=== PATIENT | female | born 1965 ===

== ENCOUNTER 2023-01-08 07:48 | Outpatient (REF) | payer OTHER, SELFPAY ==
[2023-01-08 10:57] LABS: MANUAL DIFF FLAG NO
[2023-01-08 11:22] LABS: Basophils Percent Auto 0.5 % (0-2); Eosinophils Absolute Auto 0.3 X10*3/uL (0.0-0.4); Eosinophils Percent Auto 4.5 % (0-4); Hematocrit 40.1 % (37.0-47.0); Hemoglobin 12.8 g/dl (12.0-16.0); Imm Gran Abs Auto 0.01 X10*3/uL (0.00-0.03); Imm Gran Pct Auto 0.2 % (0.0-0.4); Lymphocytes Absolute Auto 1.7 X10*3/uL (1.2-4.9); Lymphocytes Percent Auto 27.7 % (20-40); Mean Corpuscular HGB Conc 31.9 g/dl (31.0-35.0); Mean Corpuscular Hemoglobin 26.3 pg (27.0-33.0); Mean Corpuscular Volume 82.3 fL (80.0-98.0); Monocytes Absolute Auto 0.6 X10*3/uL (0.1-1.2); Monocytes Percent Auto 8.8 % (2-11); Neutrophils Absolute Auto 3.7 x10*3/uL (2.0-8.3); Neutrophils Percent Auto 58.3 % (45-73); Platelet Count 287 X10*3/uL (160-400); Red Blood Count 4.87 X10*6/uL (4.20-5.50); Red Cell Distribution Width 14.4 % (11.0-16.0); White Blood Count 6.3 X10*3/uL (4.8-10.8)
[2023-01-08 11:27] LABS: Alanine Aminotransferase 23 U/L (0-31); Albumin Level 4.1 g/dL (3.5-5.0); Alkaline Phosphatase 69 U/L (39-117); Anion Gap 12 (12-20); Aspartate Amino Transferase 20 U/L (5-31); Bilirubin Total 0.4 mg/dL (0.0-1.0); Blood Urea Nitrogen 11 mg/dL (9-16); Calcium 10.2 mg/dL (8.4-10.2); Carbon Dioxide 26 mmol/L (22-29); Chloride 105 mmol/L (96-108); Cholesterol 198 mg/dL; Estimated Glomerular Filt Rate > 60; Glucose Fasting 118 mg/dL (60-99); HDL Cholesterol 50 mg/dL; LDL Cholesterol Calculated 115 mg/dl; Potassium 4.4 mmol/L (3.3-5.1); Sodium 139 mmol/L (135-145); Total Protein 7.5 g/dL (6.5-8.0); Triglycerides 166 mg/dL
[2023-01-08 11:44] LABS: Thyroid Stimulating Hormone 2.77 uIU/mL (0.32-4.0)
== END 2023-01-08 07:49 | disposition home or self-care (01) ==
LOC: HO.10HDL 07:48
PROVIDERS: Visit Provider Internal Medicine
DX: Z00.00 Encounter for general adult medical examination without abnormal findings (principal); D86.9 Sarcoidosis, unspecified; F32.9 Major depressive disorder, single episode, unspecified; I10 Essential (primary) hypertension; Z87.42 Personal history of other diseases of the female genital tract
CPT/HCPCS: 36415; 80053; 80061; 84443; 85025

== ENCOUNTER 2023-02-16 10:08 | Outpatient (AMB) | payer OTHER, SELFPAY ==
--- NOTE | 2023-02-16 10:36 | A.OFFVIS_ITS ---
Intake Vital Signs 02/16/23 10:38 Height 5 ft 4 in Weight 153 lb BMI 26.3 BP 110/82 Blood Pressure Location Lt brachial Position Standing Pulse 88 Pulse Source Pulse Oximeter Pulse Oximetry (%) 98 Oxygen Delivery Method Room Air Intake Visit Reasons: Sarcoidosis Intake Note: pt is here as a new patient for Sarcoid, she does have symptoms at times of short of breath, gentle exercises Pt did have a biopsy about 10 years ago for her sarcoid DX. but hasn't had any follow up on this in about 6 years. 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 The patient is a 57 year woman with a known diagnosis of sarcoidosis made about 10 years ago. Apparently the patient had symptoms of shortness of breath and had a preop evaluation which she had a chest x-ray that time. She was found to have an abnormal chest x-ray and referred to Pulmonary. There she had additional testing and underwent bronchoscopy likely with EBUS and was diagnosed with sarcoidosis per report. She was not treated because her symptoms were minimal a and her findings were mild. She was monitor closely with PFTs at that time. She has not had breathing studies in a while. She also had her eyes checked. Denies any rashes. In the meantime she did have significant allergies with significant nasal congestion. She lived in different parts of the [facility]. Back in [place] she had allergy testing and also had ENT see operable opt perform sinus surgery. She did not have any nasal polyps documented. The patient was also found to have significant allergies. Now she is having significant shortness of breath. When she moved back to the area she had bad bronchitis back in August. She was treated at an urgent care and given antibiotics. She was found to be in wheezy but she is not on any inhaler to use. The patient at this point is back to her baseline and she is not having any significant chest tightness or wheezing. However, sometimes has a hard time sleeping has a nasal congestion. She has been using Zyrtec. Will go ahead and add Singulair and also fluticasone nasal spray. Will also request a chest x-ray and PFTs to assess her history of sarcoidosis. She has significant allergies in therefore will do additional allergy testing and blood work at this time as well. [facility] Medical History (Updated 02/16/23 @ 23:46 by Antonio Lorenzo MD) Chronic allergic rhinitis Chronic cough Sarcoid arthritis Social History (Updated 02/16/23 @ 10:43 by SEVEN Cedeño) Patient Tobacco Use Status: Never used Tobacco Review of Systems Const Denies fatigue, Denies fever(s) and Denies weight loss Eyes Denies change in vision and Reports itchy eyes ENT Reports nasal congestion and Reports nasal discharge Card Denies chest pain and Reports dyspnea on exertion Resp Reports dyspnea on exertion GI Denies abdominal pain Musc Reports no additional complaints Skin/Breast Denies rash Neuro Reports no additional complaints Endo Denies fatigue Stephen/Lymph Denies lymphadenopathy Aller/Immun Reports itchy eyes Physical Exam Vital Signs: Last Vital Signs Pulse 88 02/16/23 10:38 BP 110/82 02/16/23 10:38 Pulse Ox 98 02/16/23 10:38 Oxygen Delivery Method Room Air 02/16/23 10:38 BMI result Body Mass Index 26.3 Const General: comfortable HEENT Head: Yes atraumatic Neck Neck: Yes supple Chest Chest palpation & inspection: normal inspection of the chest Resp Effort & Inspection: normal respiratory effort Auscultation: clear to auscultation bilaterally Cardio Rate: regular rate Rhythm: regular rhythm Heart sounds: S1 normal heart sound present and S2 normal heart sound present GI Palpation (GI): Soft to palpation Skin General skin exam: no rashes or lesions noted Extrem General: Yes no clubbing, cyanosis or edema Assessment & Plan Assessment & Plan (1) Sarcoid arthritis: Code(s): D86.86 - Sarcoid arthropathy (2) Chronic allergic rhinitis: Code(s): J30.9 - Allergic rhinitis, unspecified (3) Chronic cough: Code(s): R05.3 - Chronic cough Plan start fluticasone nasal spray Bloodwork/ allergy testing CXR PFTs continue zyrtec Add Singulair F/U 6-8 weeks Orders: Orders Angiotensin Converting Enzyme Today D86.86 - Sarcoid arthropathy, J30.9 - Allergic rhinitis, unspecified Rast Allergen Today D86.86 - Sarcoid arthropathy, J30.9 - Allergic rhinitis, unspecified Erythrocyte Sedimentation Rate Today D86.86 - Sarcoid arthropathy, J30.9 - Allergic rhinitis, unspecified Immunoglobulin E Today D86.86 - Sarcoid arthropathy, J30.9 - Allergic rhinitis, unspecified Immunoglobulins,IgG IgA IgM Today D8 - Sarcoid arthropathy, J30.9 - Allergic rhinitis, unspecified PFT pulmonary function test Today D8 - Sarcoid arthropathy, J30.9 - Allergic rhinitis, unspecified XR chest 2V Today D8 - Sarcoid arthropathy, J30.9 - Allergic rhinitis, unspecified Medications: New fluticasone propionate 50 mcg/actuation 2 sprays intranasal DAILY 30 days 15.8 mL 11RF J31.0 - Chronic rhinitis montelukast 10 mg PO DAILY 30 days 30 tabs 11RF J45.909 - Unspecified asthma, uncomplicated Coding Level of Care Code New Pt Level 4 (15038) Diagnoses Sarcoid arthritis D8 Chronic allergic rhinitis J30.9 Chronic cough R05.3 Time Spent (min) 40
[2023-02-16 10:38] VITALS: BP 110/82; PULSE 88; O2SAT 98; BMI 26.3
== END 2023-02-16 11:12 | disposition home or self-care (01) ==
PROVIDERS: PCP Internal Medicine; Visit Provider Hospitalist
DX: D86.86 Sarcoid arthropathy (principal); J30.9 Allergic rhinitis, unspecified; R05.3 Chronic cough
CPT/HCPCS: 99204

== ENCOUNTER → 2023-02-16 10:08 | Outpatient (BNVA) | payer OTHER, SELFPAY | PROVIDERS: PCP Internal Medicine; Visit Provider Hospitalist | DX: D86.86 Sarcoid arthropathy (principal); J30.9 Allergic rhinitis, unspecified; R05.3 Chronic cough | CPT/HCPCS: 99202 ==

== ENCOUNTER 2023-02-24 07:16 | Outpatient (REF) | payer OTHER, SELFPAY ==
--- NOTE | ~2023-02-24 | MM_ITS ---
EXAMINATION: MM SCREENING DIGITAL BREAST TOMOSYNTHESIS, BILATERAL CLINICAL INFORMATION: Screening. Asymptomatic. The lifetime risk of breast cancer based on the Tyrer-Cuzick Model is 7.6%. COMPARISON: Mammography: No prior mammograms for comparison. TECHNIQUE: Digital breast tomosynthesis is performed in both the craniocaudal and mediolateral oblique views along with computer-aided detection (CAD). Synthesized 2D images are generated from the tomosynthesis. FINDINGS: The breasts are almost entirely fatty (ACR BI-RADS breast composition Category a). There are no significant masses, abnormal calcifications, or other abnormalities. MM/MM tomosynthesis screening BI IMPRESSION: No mammographic evidence of malignancy. ASSESSMENT: BI-RADS BI-RADS 1 - Negative RECOMMENDATION: Routine annual mammography screening. 1 year F/U This examination should not preclude the clinical evaluation of a suspicious palpable abnormality. This patient's information was entered into a reminder system with a target due date for their next mammogram.
== END 2023-02-24 07:17 | disposition home or self-care (01) ==
LOC: HO.MAMMO 07:16
PROVIDERS: PCP Internal Medicine; Visit Provider Internal Medicine
DX: Z12.31 Encounter for screening mammogram for malignant neoplasm of breast (principal)
CPT/HCPCS: 77063; 77067

== ENCOUNTER → 2023-02-24 07:30 | Outpatient (BNV) | payer OTHER, SELFPAY | PROVIDERS: PCP Internal Medicine; Visit Provider Radiology Diagnostic Radiology | DX: Z12.31 Encounter for screening mammogram for malignant neoplasm of breast (principal) | CPT/HCPCS: 77063; 77067 ==

== ENCOUNTER 2023-02-24 07:39 | Outpatient (REF) | payer OTHER, SELFPAY ==
--- NOTE | ~2023-02-24 | XR_ITS ---
EXAMINATION: XR CHEST CLINICAL INFORMATION: Sarcoid arthropathy COMPARISON: None available. TECHNIQUE: 2 views of the chest were obtained. FINDINGS: There is no gross pneumothorax. Heart size is normal. Mild multilevel degenerative changes in the thoracic spine. No pleural effusion. Lungs are well-inflated. No focal consolidation to suggest pneumonia. Mild prominence of the bilateral mariano, possibly related to vascularity, although adenopathy should also be considered in this patient with given history of sarcoidosis. XR/XR chest 2V IMPRESSION: Mild prominence of the bilateral mariano, possibly related to vascularity, although adenopathy should also be considered in this patient with given history of sarcoidosis. CT scan of the chest is recommended for further evaluation
--- NOTE | 2023-02-24 09:15 | PFT_ITS ---
Forced vital capacity 88%, FEV1 85%. FEV1/FVC ratio is 77. FEF 25/75 75% and MVV 59%. Post bronchodilator therapy, there is significant increase in FEF 25/75. Lung volumes, the patient was not able to perform adequate maneuver for the total lung capacity. SVC 93%, ERS is 85%, which are normal. Diffusion capacity 84%, normal. CONCLUSION: Normal pulmonary function test. However, the patient may have mild obstructive disorder of the small airways, which response to bronchodilator therapy. Clinical correlation is recommended. Sebastián Terry MD [facility] / [id number]
[2023-02-24 09:38] LABS: Erythrocyte Sedimentation Rate 16 MM/HR (0-20)
[2023-02-25 21:43] LABS: Immunoglobulin E 45 kU/L (<OR=114)
[2023-03-02 20:59] LABS: IgA 128 mg/dL (47-310); IgG 1677 mg/dL (600-1640); IgM 49 mg/dL (50-300)
[2023-03-03 04:18] LABS: Angiotensin Converting Enzyme 52.1 U/L (9-67)
== END 2023-02-24 07:40 | disposition home or self-care (01) ==
LOC: HO.RESP 07:39
PROVIDERS: PCP Internal Medicine; Visit Provider Hospitalist
DX: D86.86 Sarcoid arthropathy (principal); J30.9 Allergic rhinitis, unspecified; Z91.09 Other allergy status, other than to drugs and biological substances
CPT/HCPCS: 36415; 71046; 82164; 82784; 82785; 85652; 86003; 94010; 94727; 94729

== ENCOUNTER → 2023-02-24 09:15 | Outpatient (BNV) | payer OTHER, SELFPAY | PROVIDERS: PCP Internal Medicine; Visit Provider Internal Medicine | DX: J40 Bronchitis, not specified as acute or chronic (principal); D86.86 Sarcoid arthropathy | CPT/HCPCS: 94060; 94727; 94729 ==

== ENCOUNTER 2023-04-08 07:18 | Outpatient (REF) | payer OTHER, SELFPAY ==
[2023-04-08 10:45] LABS: Estimated Average Glucose 146 mg/dL; Hemoglobin A1c % 6.7 % (<6.0)
[2023-04-08 10:54] LABS: Alanine Aminotransferase 21 U/L (0-31); Alkaline Phosphatase 61 U/L (39-117); Anion Gap 12 (12-20); Aspartate Amino Transferase 22 U/L (5-31); Bilirubin Total 0.3 mg/dL (0.0-1.0); Blood Urea Nitrogen 13 mg/dL (9-16); Calcium 10.1 mg/dL (8.4-10.2); Carbon Dioxide 25 mmol/L (22-29); Chloride 106 mmol/L (96-108); Estimated Glomerular Filt Rate > 60; Glucose Random 133 mg/dL (60-115); Potassium 3.9 mmol/L (3.3-5.1); Sodium 139 mmol/L (135-145); Total Protein 7.4 g/dL (6.5-8.0)
== END 2023-04-08 07:19 | disposition home or self-care (01) ==
LOC: HO.10HDL 07:18
PROVIDERS: Visit Provider Internal Medicine
DX: I10 Essential (primary) hypertension (principal); J30.89 Other allergic rhinitis; R73.01 Impaired fasting glucose; R05.9 Cough, unspecified; D86.9 Sarcoidosis, unspecified; D86.86 Sarcoid arthropathy
CPT/HCPCS: 36415; 80053; 83036; 99212

== ENCOUNTER 2023-04-08 07:35 | Outpatient (AMB) | payer OTHER, SELFPAY ==
[2023-04-08 07:57] VITALS: BP 124/78; PULSE 74; O2SAT 98
--- NOTE | 2023-04-08 07:57 | A.OFFVIS_ITS ---
Intake Vital Signs 04/08/23 07:57 Weight 159 lb 13.362 oz BP 124/78 Blood Pressure Location Lt brachial Position Sitting Pulse 74 Pulse Source Pulse Oximeter Pulse Oximetry (%) 98 Oxygen Delivery Method Room Air Intake Visit Reasons: Sarcoidosis Allergies Sulfa (Sulfonamide Antibiotics) Allergy (Severe, Verified 04/08/23 08:00) rash Medication List - Last Reconciled 04/08/23 by Patrica Beaulieu LPN cetirizine (Zyrtec) 10 mg PO DAILY PRN fluticasone propionate 50 mcg/actuation 2 sprays intranasal DAILY 30 days montelukast 10 mg PO DAILY 30 days HPI HPI Comments History of Present Illness Details The patient is a 57 year woman with a known diagnosis of sarcoidosis made about 10 years ago. Apparently the patient had symptoms of shortness of breath and had a preop evaluation which she had a chest x-ray that time. She was found to have an abnormal chest x-ray and referred to Pulmonary. There she had additional testing and underwent bronchoscopy likely with EBUS and was diagnosed with sarcoidosis per report. She was not treated because her symptoms were minimal a and her findings were mild. She was monitor closely with PFTs at that time. She has not had breathing studies in a while. She also had her eyes checked. Denies any rashes. In the meantime she did have significant allergies with significant nasal congestion. She lived in different parts of the [facility]. Back in [place] she had allergy testing and also had ENT see operable opt perform sinus surgery. She did not have any nasal polyps documented. The patient was also found to have significant allergies. Now she is having significant shortness of breath. When she moved back to the area she had bad bronchitis back in August. She was treated at an urgent care and given antibiotics. She was found to be in wheezy but she is not on any inhaler to use. The patient at this point is back to her baseline and she is not having any significant chest tightness or wheezing. However, sometimes has a hard time sleeping has a nasal congestion. She has been using Zyrtec. Will go ahead and add Singulair and also fluticasone nasal spray. Will also request a chest x-ray and PFTs to assess her history of sarcoidosis. She has significant allergies in therefore will do additional allergy testing and blood work at this time as well. 04/08/2023 the patient is here for a pulmonary follow-up visit. She is complaining of significant allergies. Significant nasal congestion moderate severity. She did try the fluticasone nasal spray but she did not tolerate it. She is wondering about addition spray. She has already rinsing with the Neti bottle. The patient has been also using Zyrtec. We had prescribed Singulair for her but I do not believe she is using it. The patient is concerned about multiple medications. In addition to that we did review her allergy testing. She has allergies which are moderate to although trees in the area. In addition to that she has moderate allergies to grasses but a more significant allergy is high allergies to ragweed which is in season right now. The patient will try Zyrtec D to see if this provides her additional relief if she can tolerate the Sudafed. The patient also consider continue to rinse on a nightly basis. And she can also continue to use the montelukast. She will try the Astelin nasal spray to see if she can tolerate a different nasal spray. In regards of her imaging studies she had a chest x-ray demonstrating slight prominence of the hilum which is consistent with a history of sarcoidosis. No other parenchymal findings noted. Therefore will go ahead and repeat the x-ray in the springtime at some point. If the patient develops any worsening symptoms or if the x-ray continues to be abnormal we can request a CT scan of the chest. The patient otherwise is doing well. Her other blood work was reassuring. Her PFTs also reassuring. [facility] Medical History (Updated 04/08/23 @ 08:26 by Antonio Lorenzo MD) Chronic allergic rhinitis Chronic cough Sarcoid arthritis Sarcoidosis Social History (Updated 02/16/23 @ 10:43 by Pushpa Evangelista Radha) Patient Tobacco Use Status: Never used Tobacco Review of Systems Const Denies fatigue, Denies fever(s) and Denies weight loss Eyes Denies change in vision and Reports itchy eyes ENT Reports nasal congestion, Reports nasal discharge, Reports nasal obstruction, Reports post nasal drip and Reports sinus pressure Card Denies chest pain and Reports dyspnea on exertion Resp Reports dyspnea on exertion GI Denies abdominal pain Musc Reports no additional complaints Skin/Breast Denies rash Neuro Reports no additional complaints Endo Denies fatigue Stephen/Lymph Denies lymphadenopathy Aller/Immun Reports itchy eyes Physical Exam Vital Signs: Last Vital Signs Pulse 74 09/06/23 07:57 BP 124/78 04/08/23 07:57 Pulse Ox 98 04/08/23 07:57 Oxygen Delivery Method Room Air 04/08/23 07:57 Const General: comfortable HEENT Head: Yes atraumatic Neck Neck: Yes supple Chest Chest palpation & inspection: normal inspection of the chest Resp Effort & Inspection: normal respiratory effort Auscultation: clear to auscultation bilaterally Cardio Rate: regular rate Rhythm: regular rhythm Heart sounds: S1 normal heart sound present and S2 normal heart sound present GI Palpation (GI): Soft to palpation Skin General skin exam: no rashes or lesions noted Extrem General: Yes no clubbing, cyanosis or edema Assessment & Plan Assessment & Plan (1) Chronic allergic rhinitis: Code(s): J30.9 - Allergic rhinitis, unspecified (2) Chronic cough: Code(s): R05.3 - Chronic cough (3) Sarcoidosis: Code(s): D86.9 - Sarcoidosis, unspecified (4) Sarcoid arthritis: Code(s): D86.86 - Sarcoid arthropathy Plan stopped fluticasone nasal spray, adverse effect start astelin repeat CXR in 6 months continue zyrtec, consider zyrtec D for 1-2 weeks Singulair F/U 6 months Orders: Orders XR chest 2V Today D86.9 - Sarcoidosis, unspecified, R05.3 - Chronic cough Medications: New azelastine administer into each nostril 2 sprays intranasal BID 30 days 30 mL 6RF Coding Level of Care Code Est Pt Level 4 (30026) Diagnoses Chronic allergic rhinitis J30.9 Chronic cough R05.3 Sarcoidosis D86.9 Sarcoid arthritis D86.86 Time Spent (min) 18
== END 2023-04-08 08:25 | disposition home or self-care (01) ==
PROVIDERS: PCP Internal Medicine; Visit Provider Hospitalist
DX: J30.9 Allergic rhinitis, unspecified (principal); R05.3 Chronic cough; D86.9 Sarcoidosis, unspecified; D86.86 Sarcoid arthropathy
CPT/HCPCS: 99214

== ENCOUNTER 2023-07-14 07:51 | Outpatient (REF) | payer OTHER, SELFPAY ==
[2023-07-14 10:54] LABS: Alanine Aminotransferase 21 U/L (0-31); Albumin Level 4.4 g/dL (3.5-5.0); Alkaline Phosphatase 63 U/L (39-117); Anion Gap 11 (12-20); Aspartate Amino Transferase 23 U/L (5-31); Bilirubin Total 0.3 mg/dL (0.0-1.0); Blood Urea Nitrogen 15 mg/dL (9-16); Calcium 10.4 mg/dL (8.4-10.2); Carbon Dioxide 26 mmol/L (22-29); Chloride 105 mmol/L (96-108); Cholesterol 220 mg/dL (<200); Estimated Glomerular Filt Rate > 60; Glucose Random 113 mg/dL (60-115); HDL Cholesterol 56 mg/dL (>40); LDL Cholesterol Calculated 146 mg/dL (<100); Potassium 4.1 mmol/L (3.3-5.1); Sodium 138 mmol/L (135-145); Total Protein 8.1 g/dL (6.5-8.0); Triglycerides 91 mg/dL (<150)
[2023-07-14 11:02] LABS: Estimated Average Glucose 131 mg/dL; Hemoglobin A1C 150.2303 umol/L; Hemoglobin A1c % 6.2 % (<6.0)
[2023-07-14 12:22] LABS: Creatinine Urine 85.74 mg/dL; Microalbumin Urine < 5.0 mg/L
== END 2023-07-14 07:52 | disposition home or self-care (01) ==
LOC: HO.10HDL 07:51
PROVIDERS: Visit Provider Internal Medicine
DX: E11.9 Type 2 diabetes mellitus without complications (principal); E78.00 Pure hypercholesterolemia, unspecified; I10 Essential (primary) hypertension
CPT/HCPCS: 36415; 80053; 80061; 82043; 82570; 83036

== ENCOUNTER 2024-01-15 09:18 | Outpatient (REF) | payer OTHER, SELFPAY ==
--- NOTE | ~2024-01-15 | XR_ITS ---
EXAMINATION: XR chest 2V CLINICAL INFORMATION: Reason for Exam R05.3 - Chronic cough COMPARISON: Chest radiograph 02/24/2023 TECHNIQUE: 2 views of the chest FINDINGS: Clear lungs. No pneumothorax or pleural effusion. Unchanged cardiomediastinal silhouette. Persistent mild fullness in the bilateral mariano. XR/XR chest 2V Impression: * No acute cardiopulmonary findings. * Persistent mild fullness in the bilateral mariano. Again, this may be related to vascularity, although adenopathy should be considered given history of sarcoidosis. Recommend CT scan of the chest for further evaluation.
== END 2024-01-15 09:19 | disposition home or self-care (01) ==
LOC: HO.XRAY 09:18
PROVIDERS: PCP Internal Medicine; Visit Provider Hospitalist
DX: R05.3 Chronic cough (principal); D86.9 Sarcoidosis, unspecified; D86.86 Sarcoid arthropathy; J30.9 Allergic rhinitis, unspecified
CPT/HCPCS: 71046; 99212

== ENCOUNTER 2024-01-15 09:42 | Outpatient (AMB) | payer OTHER, SELFPAY ==
[2024-01-15 10:03] VITALS: BP 118/70; PULSE 82; O2SAT 98; BMI 23.5
--- NOTE | 2024-01-15 10:03 | A.OFFVIS_ITS ---
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 Apparently the patient had symptoms of shortness of breath and had a preop evaluation which she had a chest x-ray that time. She was found to have an abnormal chest x-ray and referred to Pulmonary. There she had additional testing and underwent bronchoscopy likely with EBUS and was diagnosed with sarcoidosis per report. She was not treated because her symptoms were minimal a and her findings were mild. She was monitor closely with PFTs at that time. She has not had breathing studies in a while. She also had her eyes checked. Denies any rashes. In the meantime she did have significant allergies with significant nasal congestion. She lived in different parts of the [facility]. Back in [place] she had allergy testing and also had ENT see operable opt perform sinus surgery. She did not have any nasal polyps documented. The patient was also found to have significant allergies. Now she is having significant shortness of breath. When she moved back to the area she had bad bronchitis back in August. She was treated at an urgent care and given antibiotics. She was found to be in wheezy but she is not on any inhaler to use. The patient at this point is back to her baseline and she is not having any significant chest tightness or wheezing. However, sometimes has a hard time sleeping has a nasal congestion. She has been using Zyrtec. Will go ahead and add Singulair and also fluticasone nasal spray. Will also request a chest x-ray and PFTs to assess her history of sarcoidosis. She has significant allergies in therefore will do additional allergy testing and blood work at this time as well. 04/08/2023 the patient is here for a pulmonary follow-up visit. She is complaining of significant allergies. Significant nasal congestion moderate severity. She did try the fluticasone nasal spray but she did not tolerate it. She is wondering about addition spray. She has already rinsing with the Neti bottle. The patient has been also using Zyrtec. We had prescribed Singulair for her but I do not believe she is using it. The patient is concerned about multiple medications. In addition to that we did review her allergy testing. She has allergies which are moderate to although trees in the area. In addition to that she has moderate allergies to grasses but a more significant allergy is high allergies to ragweed which is in season right now. The patient will try Zyrtec D to see if this provides her additional relief if she can tolerate the Sudafed. The patient also consider continue to rinse on a nightly basis. And she can also continue to use the montelukast. She will try the Astelin nasal spray to see if she can tolerate a different nasal spray. In regards of her imaging studies she had a chest x-ray demonstrating slight prominence of the hilum which is consistent with a history of sarcoidosis. No other parenchymal findings noted. Therefore will go ahead and repeat the x-ray in the springtime at some point. If the patient develops any worsening symptoms or if the x-ray continues to be abnormal we can request a CT scan of the chest. The patient otherwise is doing well. Her other blood work was reassuring. Her PFTs also reassuring. 01/15/2024 the patient is here for a pulmonary follow-up visit. The patient overall has been doing well. Although has significant allergies at this time. Significant nasal congestion sinus pressure postnasal drip and cough. Moderate severity. It does affect her sleep. She did have a chest x-ray which I personally reviewed. Has not been officially read yet. It appears to be completely normal to me. Her previous x-ray demonstrated some perihilar pronounced areas suggesting some lymphadenopathy suggestive of her history of sarcoidosis. However, I do not really see any significant abnormalities on her recent x-ray. Will await the final read. If the V distilled demonstrates abnormalities we can always consider getting a CT scan to further visualize those areas. The meantime going to focus on improving her underlying allergies. We did review her allergy testing with significant allergies to trees and pollen and weeds. Unfortunately this is a tough season for her and she also has severe ragweed allergies at the end of summer. She does not like to take a lot of medications. Will try to optimize the medication she is taking now. [facility] Medical History (Updated 04/08/23 @ 08:26 by Antonio Lorenzo MD) Sarcoidosis Chronic cough Sarcoid arthritis Chronic allergic rhinitis Social History (Updated 02/16/23 @ 10:43 by SEVEN Cedeño) Patient Tobacco Use Status: Never used Tobacco Review of Systems Const Denies fatigue, Denies fever(s) and Denies weight loss Eyes Denies change in vision and Reports itchy eyes ENT Reports nasal congestion, Reports nasal discharge, Reports nasal obstruction, Reports post nasal drip and Reports sinus pressure Card Denies chest pain and Reports dyspnea on exertion Resp Reports dyspnea on exertion GI Denies abdominal pain Musc Reports no additional complaints Skin/Breast Denies rash Neuro Reports no additional complaints Endo Denies fatigue Stephen/Lymph Denies lymphadenopathy Aller/Immun Reports itchy eyes Physical Exam Vital Signs: Last Vital Signs Pulse 82 01/15/24 10:03 BP 118/70 01/15/24 10:03 Pulse Ox 98 01/15/24 10:03 Oxygen Delivery Method Room Air 01/15/24 10:03 BMI result Body Mass Index 23.5 Const General: comfortable HEENT Head: Yes atraumatic General nose exam: Abnormal mucous membranes and turbinates present erythematous Neck Neck: Yes supple Chest Chest palpation & inspection: normal inspection of the chest Resp Effort & Inspection: normal respiratory effort Auscultation: clear to auscultation bilaterally Cardio Rate: regular rate Rhythm: regular rhythm Heart sounds: S1 normal heart sound present and S2 normal heart sound present GI Palpation (GI): Soft to palpation Skin General skin exam: no rashes or lesions noted Extrem General: Yes no clubbing, cyanosis or edema Assessment & Plan Assessment & Plan (1) Chronic allergic rhinitis: Code(s): J30.9 - Allergic rhinitis, unspecified Category: Medical (2) Chronic cough: Code(s): R05.3 - Chronic cough Category: Medical (3) Sarcoidosis: Code(s): D86.9 - Sarcoidosis, unspecified Category: Medical (4) Sarcoid arthritis: Code(s): D86.86 - Sarcoid arthropathy Category: Medical Plan stopped fluticasone nasal spray, adverse effect stopped astelin repeat CXR in 1 yr continue zyrtec, consider zyrtec twice a day start pseudophed sinus rinse Stopped Singulair F/U 8-12 months Medications: New pseudoephedrine HCl DNExceed 4 doses/24h 60 mg PO TID PRN 90 tabs 4RF nasal congestion 30 days Changed From cetirizine (Zyrtec) 10 mg PO DAILY PRN To cetirizine (Zyrtec) 10 mg PO BID 60 tabs 2RF 30 days Coding Level of Care Code Est Pt Level 4 (89342) Diagnoses Chronic allergic rhinitis J30.9 Chronic cough R05.3 Sarcoidosis D86.9 Sarcoid arthritis D86.86 Time Spent (min) 17
== END 2024-01-15 10:32 | disposition home or self-care (01) ==
PROVIDERS: PCP Internal Medicine; Visit Provider Hospitalist
DX: J30.9 Allergic rhinitis, unspecified (principal); R05.3 Chronic cough; D86.9 Sarcoidosis, unspecified; D86.86 Sarcoid arthropathy
CPT/HCPCS: 99214